=== PATIENT | male | born 1995 | race African-American/Black ===

== ENCOUNTER 2016-09-06 15:09 | Emergency (ER) | payer MEDICAID ==
[~2016-09-06] VITALS: Ht 180.3 cm; Wt 68.0 kg
[2016-09-06 15:28] VITALS: BP 129/76
[2016-09-06 15:59] LABS: Basophils # (auto) 0 uL; Basophils % (auto) 0.6 % (0.0-2.0); DEFINITIVE VIEW TRANSMISSION; Eosinophils # (auto) 0.1 uL; Hemoglobin 13.2 g/dL (13.5-17.5); Mean Platelet Volume 10.4 fL (7.4-10.4); Monocytes # (auto) 0.6 uL
[2016-09-06 16:04] LABS: Eosinophils % (auto) 1.2 % (0.0-7.0); Hematocrit 41.9 % (41.0-53.0); Lymphocytes % (auto) 35.9 % (10.0-50.0); Mean Corpuscular Hemoglobin 25.8 pg (28.0-32.0); Mean Corpuscular Hgb Conc. 31.4 g/dL (32.0-36.0); Mean Corpuscular Volume 82.1 fL (80.0-100.0); Monocytes % (auto) 11.4 % (0.0-12.0); Neutrophils # (auto) 2.8 uL; Neutrophils % (auto) 50.9 % (37.0-80.0); Platelet Count (auto) 173 10^3/uL (140-450); Red Cell Distribution Width 14.3 % (11.6-16.0); White Blood Cell 5.5 10^3/uL (4.4-10.8)
[2016-09-06 16:19] LABS: Albumin 3.6 g/dL (3.4-5.0); Calcium 8.9 mg/dL (8.5-10.1); Potassium 3.9 mmol/L (3.5-5.1)
[2016-09-06 16:22] LABS: BUN/Creatinine Ratio 13.1
[2016-09-06 16:25] LABS: Bilirubin, Total 0.3 mg/dL (0.2-1.0); Total Protein 7.6 g/dL (6.4-8.2)
== END 2016-09-06 17:34 | disposition home or self-care (01) ==
LOC: ER 15:11
DX: R07.89 Other chest pain (principal)
CPT/HCPCS: 36415; 71020; 80053; 84484; 85025; 93005